=== PATIENT | female | born 1990 | race Caucasian/White ===

== ENCOUNTER 2021-05-31 13:15 | Day surgery (SDC) | payer MEDICAID ==
[2021-05-31 13:50] VITALS: BMI 29.7
[2021-05-31] MEDS ORDERED: hydrALAZINE 20 MG/ML VIAL SLOW IVP PRN (15:12)
== END 2021-05-31 15:00 | disposition home health service (06) ==
LOC: CSHLD/OP 13:15
PROVIDERS: ATTEND Family Medicine
DX: O47.1 False labor at or after 37 completed weeks of gestation (principal); O48.0 Post-term pregnancy; Z3A.40 40 weeks gestation of pregnancy; Z88.0 Allergy status to penicillin
CPT/HCPCS: 99282